=== PATIENT | female | born 1965 | race Two or more races ===

== ENCOUNTER 2020-09-15 12:19 | Inpatient (IN) | payer OTHER ==
[~2020-09-15] VITALS: Ht 160 cm; Wt 85.6 kg
[2020-09-15] MEDS ORDERED: MELO7.5T31 PO (12:54)
[2020-09-15] MEDS ORDERED: PIOG15TA22 PO (12:54)
[2020-09-15] MEDS ORDERED: INSU100V13 SC (12:54)
[2020-09-15] MEDS ORDERED: ATOR10TA9 PO (12:54)
[2020-09-15] MEDS ORDERED: AMLO-150 PO (12:54)
[2020-09-15] MEDS ORDERED: HYDR12.517 PO (12:54)
[2020-09-15] MEDS ORDERED: LISI-167 PO (12:54)
[2020-09-15] MEDS ORDERED: METF500T17 PO (12:54)
--- NOTE | 2020-09-15 12:54 | NUR ---
PT TO ROOM FROM TRIAGE VIA WHEELCHAIR. STATES SHE WAS +COVID LAST WED. AND SOB, WEAKNESS, OVERALL FATIGUE WITH LOSS OF APPETITE ARE WORSENING. PT ON ALL MONITORS AND CALL LIGHT W/I REACH. PROVIDER SARAH PENDING
--- NOTE | 2020-09-15 12:57 | NUR ---
PT OOB AND AMBULATED TO BATHROOM UPRIGHT STEADY GAIT. INSTRUCTED ON COLLECTION OF URINE SAMPLE
--- NOTE | 2020-09-15 12:58 | NUR ---
PT RTD TO ROOM W/O INCIDENT. ALL MONITORS IN PLACE, WATER AT BEDSIDE. SP02 AFTER AMBULATION 88%, RECOVERS TO 95% ONCE SITTING.
[2020-09-15 14:19] LABS: BASOPHILS % (AUTO) 0 % (0-1); EOSINOPHILS % (AUTO) 0 % (1-7); LYMPHOCYTES % (AUTO) 11 % (22-44); MEAN CORPUSCULAR HEMOGLOBIN 28.2 pg (27.0-34.8); MEAN CORPUSCULAR HGB CONC 33.8 g/dL (32.4-35.8); MEAN PLATELET VOLUME 7.8 fL (7.4-10.4); MONOCYTES % (AUTO) 11 % (2-9); NEUTROPHILS % (AUTO) 79 % (42-75); PLATELET COUNT 337 x10^3/uL (130-400); RED CELL DISTRIBUTION WIDTH 14.2 % (9.6-15.2)
[2020-09-15 14:20] LABS: MD NO
[2020-09-15] MEDS ORDERED: CEFTRIAXONE PMX 1GM/50ML 50 ML IVPB ONE (14:30)
[2020-09-15] MEDS ORDERED: AZITHROMYCIN 500 MG in SODIUM CHLORIDE 0.9% 250 ML IV ONE (14:30)
[2020-09-15 14:31] LABS: ALANINE AMINOTRANSFERASE 41 U/L (12-78); ALBUMIN 3.2 g/dL (3.4-5.0); ANION GAP 12 mmol/L (5-15); CALCIUM 9.2 mg/dL (8.5-10.1); CHLORIDE 100 mmol/L (98-107); CREATININE 0.85 mg/dL (0.55-1.02)
[2020-09-15 14:35] LABS: ALKALINE PHOSPHATASE 76 U/L (45-117); BILIRUBIN,TOTAL 0.5 mg/dL (0.2-1.0); TOTAL PROTEIN 8.3 g/dL (6.4-8.2); TROPONIN I < 0.015 ng/mL (0.000-0.045)
[2020-09-15 14:40] LABS: D-DIMER (DIC) 1.42 ug/mlFEU (0.00-0.52); PROTIME 10.3 Seconds (9.6-11.5)
--- NOTE | 2020-09-15 14:45 | NUR ---
DR BLACKWELL AT BEDSIDE, TEST RESULTSAND PLAN FORADMIT DISCUSSED WITH PT AND QUESTIONS ANSWERED. PT OOB TRANFERED ONTO HOSPITAL BED, STAND AND TRANSFER W/O DIFFICULTY. CALL LIGHT W/I REACH VSS, NAD NOTED.
[2020-09-15] MEDS ORDERED: CEFTRIAXONE PMX 1GM/50ML 50 ML ONE (14:50)
--- NOTE | 2020-09-15 15:24 | NUR ---
PT AMBULATED TO THE RESTROOM SPO2 WENT TO 88%, PA JOHN NOTIFIED
[2020-09-15] MEDS ORDERED: SODIUM CHLORIDE FLUSH 10ML SYR IVF PRN (15:30)
--- NOTE | 2020-09-15 15:32 | NUR ---
PT ON 2L NC AT 98%, NO REQUESTS AT THIS TIME. NAD
[2020-09-15] MEDS ORDERED: ONDANSETRON ODT 4 MG PO PRN (16:00)
[2020-09-15] MEDS ORDERED: TRAZODONE 50MG TABLET PO PRN (16:00)
[2020-09-15] MEDS ORDERED: ONDANSETRON 2MG/ML, 2ML IVPush PRN (16:00)
[2020-09-15] MEDS ORDERED: DEXAMETHASONE 4 MG/ML, 1ML IVPush SCH (16:00)
[2020-09-15] MEDS ORDERED: DOCUSATE 100 MG CAPSULE PO PRN (16:00)
[2020-09-15] MEDS ORDERED: ENALAPRILAT 1.25 MG/ML, 2ML IVPush PRN (16:00)
[2020-09-15] MEDS ORDERED: HYDROcodone/APAP 5/325 TABLET PO PRN (16:00)
[2020-09-15 16:06] LABS: MICROSCOPIC AUTO
[2020-09-15] MEDS ORDERED: ASCORBIC ACID 500 MG TABLET ONE (17:19)
[2020-09-15] MEDS ORDERED: ENOXAPARIN 40 MG/0.4 ML ONE (17:19)
[2020-09-15] MEDS ORDERED: DEXAMETHASONE 4 MG/ML, 1ML ONE (17:19)
[2020-09-15] MEDS: ENOXAPARIN 40 MG/0.4 ML SQ SCH (17:22)
[2020-09-15] MEDS: ASCORBIC ACID 500 MG TABLET PO SCH (17:22)
[2020-09-15] MEDS: INSULIN LISPRO 100 UNITS/ML, PEN SQ-INSULIN SCH ×2 (17:57→21:50)
--- NOTE | 2020-09-15 17:58 | NUR ---
MEAL TRAY PROVIDED AND SET UP FOR PATIENT. INSULIN COVERAGE NOTED
--- NOTE | 2020-09-15 20:38 | NUR ---
Report given to FELIPE Stover.
[2020-09-15 20:57] VITALS: BP 132/74
[2020-09-15] MEDS: ATORVASTATIN 10 MG TABLET PO SCH (21:50)
[2020-09-15] MEDS: INSULIN GLARGINE 100 UNITS/ML, PEN SQ-INSULIN SCH (21:50)
[2020-09-15] MEDS: ACETAMINOPHEN 325 MG TABLET PO PRN (21:51)
[2020-09-15] MEDS: GUAIFENESIN/DM 200-20MG, 10ML UDC PO PRN (22:06)
[2020-09-16 00:39] VITALS: BP 107/63
[2020-09-16 06:58] LABS: BASOPHILS % (AUTO) 0 % (0-1); EOSINOPHILS % (AUTO) 0 % (1-7); LYMPHOCYTES % (AUTO) 13 % (22-44); MEAN CORPUSCULAR HEMOGLOBIN 27.9 pg (27.0-34.8); MEAN CORPUSCULAR HGB CONC 33.3 g/dL (32.4-35.8); MEAN PLATELET VOLUME 7.8 fL (7.4-10.4); MONOCYTES % (AUTO) 11 % (2-9); NEUTROPHILS % (AUTO) 76 % (42-75); PLATELET COUNT 347 x10^3/uL (130-400); RED BLOOD COUNT 4.31 x10^6/uL (3.82-5.3); RED CELL DISTRIBUTION WIDTH 14.3 % (9.6-15.2)
[2020-09-16 06:59] LABS: MD NO
[2020-09-16 07:10] LABS: ALANINE AMINOTRANSFERASE 42 U/L (12-78); ANION GAP 7 mmol/L (5-15); CALCIUM 9.1 mg/dL (8.5-10.1); CHLORIDE 101 mmol/L (98-107)
[2020-09-16 07:17] LABS: ALKALINE PHOSPHATASE 74 U/L (45-117); BILIRUBIN,TOTAL 0.4 mg/dL (0.2-1.0)
[2020-09-16] MEDS: AMLODIPINE 5 MG TABLET PO SCH (07:35)
[2020-09-16] MEDS: ASCORBIC ACID 500 MG TABLET PO SCH ×2 (07:35→15:56)
[2020-09-16] MEDS: CHOLECALCIFEROL 1,000 UNIT TABLET PO SCH (07:35)
[2020-09-16] MEDS: ZINC SULFATE 220 MG CAPSULE PO SCH (07:35)
[2020-09-16] MEDS: LISINOPRIL 10 MG TABLET PO SCH (07:35)
[2020-09-16 07:36] VITALS: BP 124/70
[2020-09-16] MEDS: INSULIN LISPRO 100 UNITS/ML, PEN SQ-INSULIN SCH ×4 (07:58→20:23)
[2020-09-16] MEDS: GUAIFENESIN/DM 200-20MG, 10ML UDC PO PRN ×3 (07:59→22:48)
[2020-09-16] MEDS: ACETAMINOPHEN 325 MG TABLET PO PRN (07:59)
[2020-09-16] MEDS ORDERED: OMNIPAQUE 350 MG/ML, 100ML BOTTLE ONE (11:42)
[2020-09-16 12:13] VITALS: BP 123/72
[2020-09-16] MEDS: AZITHROMYCIN 500 MG in SODIUM CHLORIDE 0.9% 250 ML IV SCH (15:55)
[2020-09-16] MEDS: ENOXAPARIN 40 MG/0.4 ML SQ SCH (15:56)
[2020-09-16] MEDS ORDERED: CEFTRIAXONE PMX 1GM/50ML 50 ML IV SCH (16:00)
[2020-09-16] MEDS: CEFTRIAXONE PMX 2GM/50ML 50 ML IVPB SCH (16:59)
[2020-09-16 19:03] VITALS: BP 102/62
[2020-09-16] MEDS: ATORVASTATIN 10 MG TABLET PO SCH (20:23)
[2020-09-16] MEDS: INSULIN GLARGINE 100 UNITS/ML, PEN SQ-INSULIN SCH (20:23)
[2020-09-17 00:28] VITALS: BP 106/62
[2020-09-17] MEDS: LISINOPRIL 10 MG TABLET PO SCH (08:20)
[2020-09-17] MEDS: AMLODIPINE 5 MG TABLET PO SCH (08:20)
[2020-09-17] MEDS: ASCORBIC ACID 500 MG TABLET PO SCH ×2 (08:20→16:21)
[2020-09-17] MEDS: CHOLECALCIFEROL 1,000 UNIT TABLET PO SCH (08:20)
[2020-09-17] MEDS: INSULIN LISPRO 100 UNITS/ML, PEN SQ-INSULIN SCH ×4 (08:20→22:27)
[2020-09-17] MEDS: ZINC SULFATE 220 MG CAPSULE PO SCH (08:20)
[2020-09-17 08:21] VITALS: BP 144/80
[2020-09-17] MEDS: GUAIFENESIN/DM 200-20MG, 10ML UDC PO PRN (11:54)
[2020-09-17 15:28] VITALS: BP 121/79
[2020-09-17] MEDS: ENOXAPARIN 40 MG/0.4 ML SQ SCH (15:36)
[2020-09-17] MEDS: CEFTRIAXONE PMX 2GM/50ML 50 ML IVPB SCH (15:37)
[2020-09-17] MEDS: AZITHROMYCIN 500 MG in SODIUM CHLORIDE 0.9% 250 ML IV SCH (16:21)
[2020-09-17] MEDS: BENZONATATE 100 MG CAPSULE PO SCH ×2 (16:21→22:28)
[2020-09-17 19:14] VITALS: BP 131/77
[2020-09-17] MEDS ORDERED: INSULIN GLARGINE 100 UNITS/ML, PEN SQ-INSULIN SCH (21:00)
[2020-09-17] MEDS: ATORVASTATIN 10 MG TABLET PO SCH (22:28)
[2020-09-18 01:13] VITALS: BP 106/67
[2020-09-18 04:14] LABS: BASOPHILS % (AUTO) 0 % (0-1); EOSINOPHILS % (AUTO) 0 % (1-7); LYMPHOCYTES % (AUTO) 9 % (22-44); MEAN CORPUSCULAR HEMOGLOBIN 28.6 pg (27.0-34.8); MEAN CORPUSCULAR HGB CONC 34.4 g/dL (32.4-35.8); MEAN PLATELET VOLUME 7.3 fL (7.4-10.4); MONOCYTES % (AUTO) 13 % (2-9); NEUTROPHILS % (AUTO) 78 % (42-75); PLATELET COUNT 451 x10^3/uL (130-400); RED BLOOD COUNT 4.17 x10^6/uL (3.82-5.3); RED CELL DISTRIBUTION WIDTH 14.3 % (9.6-15.2)
[2020-09-18 04:17] LABS: ANION GAP 10 mmol/L (5-15); CHLORIDE 106 mmol/L (98-107)
[2020-09-18 04:31] LABS: MD NO
[2020-09-18] MEDS: LISINOPRIL 10 MG TABLET PO SCH (07:20)
[2020-09-18] MEDS: ASCORBIC ACID 500 MG TABLET PO SCH (07:20)
[2020-09-18] MEDS: GUAIFENESIN/DM 200-20MG, 10ML UDC PO PRN (07:20)
[2020-09-18] MEDS: ZINC SULFATE 220 MG CAPSULE PO SCH (07:21)
[2020-09-18] MEDS: BENZONATATE 100 MG CAPSULE PO SCH (07:21)
[2020-09-18] MEDS: AMLODIPINE 5 MG TABLET PO SCH (07:21)
[2020-09-18] MEDS: CHOLECALCIFEROL 1,000 UNIT TABLET PO SCH (07:21)
[2020-09-18] MEDS: INSULIN LISPRO 100 UNITS/ML, PEN SQ-INSULIN SCH ×2 (07:22→11:53)
[2020-09-18 07:23] VITALS: BP 121/73
[2020-09-18] MEDS ORDERED: BENZ-17 PO (09:16)
[2020-09-18] MEDS ORDERED: CEPH-368 PO (09:16)
[2020-09-18] MEDS ORDERED: POTA20TA6 PO (09:18)
[2020-09-18] MEDS ORDERED: POTASSIUM CHLORIDE 20 MEQ TAB.ER.PRT PO ONE (09:30)
== END 2020-09-18 12:48 | disposition home or self-care (01) | DRG 177 ==
LOC: ED 15:01 → EDIP 15:02 → SUATTDRO 15:23 → ED 15:35 → 3N 20:55
PROVIDERS: ADMIT Internal Medicine Infectious Disease; ATTEND Hospitalist
DX: U07.1 COVID-19 (principal); J12.89 Other viral pneumonia; J96.01 Acute respiratory failure with hypoxia; N30.00 Acute cystitis without hematuria; R78.81 Bacteremia; B96.20 Unspecified Escherichia coli [E. coli] as the cause of diseases classified elsewhere; B96.89 Other specified bacterial agents as the cause of diseases classified elsewhere; E11.65 Type 2 diabetes mellitus with hyperglycemia; E66.9 Obesity, unspecified; E78.5 Hyperlipidemia, unspecified; I10 Essential (primary) hypertension; Z68.33 Body mass index [BMI] 33.0-33.9, adult
CPT/HCPCS: 36415; 71045; 71275; 80048; 80053; 81001; 82728; 82962; 83605; 83615; 83735; 84145; 84484; 85025; 85049; 85379; 85384; 85610; 85730; 86140; 87040; 87077; 87086; 87186; 93005; 96365; 96374; 99285; G0378; J0456; J0696; J1100; J1650; Q9967; J1815; J7050

== ENCOUNTER 2021-02-02 13:52 | Emergency (ER) | payer OTHER ==
[~2021-02-02] VITALS: Ht 160 cm; Wt 87.2 kg
[~2021-02-02 13:52] MED LIST: AMLO-150 PO; ATOR10TA9 PO; BENZ-17 PO; CEPH-368 PO; HYDR12.517 PO; INSU100V13 SC; LISI-167 PO; MELO7.5T31 PO; METF500T17 PO; PIOG15TA22 PO; POTA20TA6 PO
[2021-02-02] MEDS ORDERED: IBUPROFEN 800 MG TABLET ONE (14:07)
--- NOTE | 2021-02-02 14:09 | NUR ---
VERBAL ORDER FROM DR. WALTERS FOR [facility]
[2021-02-02] MEDS ORDERED: IBUPROFEN 800 MG TABLET PO ONE (14:30)
--- NOTE | 2021-02-02 14:36 | NUR ---
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
--- NOTE | 2021-02-02 15:01 | NUR ---
PT STARTED FEELING ILL LAST NIGHT ABOUT MIDNIGHT, HAS BEEN WEARING MASK, NO KNOWN EXPOSURE TO ANYONE WITH COVID. PT REPORTS RUNNY NOSE, SOME SOB LAST NIGHT, LOSS OF TASTE. GENERALIZED MUSCLE ACHES. DENIES COUGH, N/V, LOOSE STOOL. MD AT BEDSIDE.
--- NOTE | 2021-02-02 15:10 | NUR ---
PT REPORTS SHE HAD COVID BACK IN AUG, EXPERIENCED SIMILIAR SX LAST NIGHT AROUND MIDNIGHT AND THAT IS WHY SHE CAME IN.
--- NOTE | 2021-02-02 16:06 | NUR ---
FS [id number]
[2021-02-02 16:36] VITALS: BP 102/40
== END 2021-02-02 16:47 | disposition home or self-care (01) ==
LOC: ED 16:30
DX: J00 Acute nasopharyngitis [common cold] (principal); Z20.822 Contact with and (suspected) exposure to COVID-19; I10 Essential (primary) hypertension; E11.9 Type 2 diabetes mellitus without complications
CPT/HCPCS: 82962; 99283; U0003